=== PATIENT | male | born 1940 | race Caucasian/White ===

== ENCOUNTER 2018-03-15 08:44 | Day surgery (SDC) | payer MEDICARE ==
[~2018-03-15] VITALS: Ht 185.4 cm; Wt 101.0 kg
[~2018-03-15 08:44] MED LIST: AEC81 PO; ALLO300T2 PO; ASCO-360 PO; ASCO1CAP5 PO; BUPR-87 PO; DESV50TA PO; HUM10VIA6 SQ; LEVO500T2 PO; LOSA25TA21 PO; MULT-1203 PO; NIAC1CAP PO; OMEP40CA37 PO; SIMV20TA6 PO; SODIUM CHLORIDE 0.9% 1000ML 1,000 ML IV ONE; SOLI10TA PO; TRIA1TAB3 PO
[2018-03-15 10:54] VITALS: BP 101/56
[2018-03-15] MEDS ORDERED: DOXY100C2 PO (11:03)
[2018-03-15 11:15] VITALS: BP 117/63
== END 2018-03-15 12:00 | disposition home or self-care (01) ==
LOC: ENDO 08:44 → DAH 08:44 → ENDO 12:00
PROVIDERS: ATTEND Internal Medicine
DX: K86.89 Other specified diseases of pancreas (principal); K31.89 Other diseases of stomach and duodenum; I10 Essential (primary) hypertension; E78.5 Hyperlipidemia, unspecified; F41.9 Anxiety disorder, unspecified; E11.9 Type 2 diabetes mellitus without complications; F32.9 Major depressive disorder, single episode, unspecified; M19.90 Unspecified osteoarthritis, unspecified site; Z85.46 Personal history of malignant neoplasm of prostate; Z85.828 Personal history of other malignant neoplasm of skin; Z68.29 Body mass index [BMI] 29.0-29.9, adult; Z90.49 Acquired absence of other specified parts of digestive tract; Z98.49 Cataract extraction status, unspecified eye; Z98.890 Other specified postprocedural states; Z79.4 Long term (current) use of insulin; Z79.899 Other long term (current) drug therapy; Z79.84 Long term (current) use of oral hypoglycemic drugs; Z86.010 Personal history of colon polyps; D64.9 Anemia, unspecified; K21.0 Gastro-esophageal reflux disease with esophagitis; K29.70 Gastritis, unspecified, without bleeding; Z88.2 Allergy status to sulfonamides; Z88.8 Allergy status to other drugs, medicaments and biological substances
CPT/HCPCS: 43237; 82948 ×2; 93005; A4606; J7030; 43231

== ENCOUNTER 2019-03-04 08:31 | Day surgery (SDC) | payer MEDICARE ==
[~2019-03-04] VITALS: Ht 182.9 cm; Wt 108.9 kg
[~2019-03-04 08:31] MED LIST changes: -ASCO1CAP5 PO; +DOXY100C2 PO; +FERS325 PO; -LEVO500T2 PO; -LOSA25TA21 PO; +LOSA25TA41 PO; +MELO-108 PO; +MEMA10TA20 PO; -TRIA1TAB3 PO; +VITAMIN E PO
[2019-03-04 10:05] VITALS: BP 124/64
[2019-03-04] MEDS ORDERED: PROPOFOL 10 MG/ML 20ML VIAL IV ONE (11:55)
[2019-03-04 12:20] VITALS: BP_SYST 131; BP_SYST 133; BP_DIAS 53; BP_DIAS 60
[2019-03-04 12:23] VITALS: BP 131/53
[2019-03-04 12:28] VITALS: BP 128/57
[2019-03-04 12:30] VITALS: BP 130/70
== END 2019-03-04 13:09 | disposition home or self-care (01) ==
LOC: DAH 08:31 → ENDO 08:31
PROVIDERS: ATTEND Internal Medicine
DX: K29.70 Gastritis, unspecified, without bleeding (principal); K21.0 Gastro-esophageal reflux disease with esophagitis; K76.89 Other specified diseases of liver; N28.1 Cyst of kidney, acquired; N13.30 Unspecified hydronephrosis; I10 Essential (primary) hypertension; E78.5 Hyperlipidemia, unspecified; D64.9 Anemia, unspecified; M19.90 Unspecified osteoarthritis, unspecified site; F41.9 Anxiety disorder, unspecified; E11.9 Type 2 diabetes mellitus without complications; F32.9 Major depressive disorder, single episode, unspecified; Z79.4 Long term (current) use of insulin; Z79.899 Other long term (current) drug therapy; Z79.82 Long term (current) use of aspirin; Z90.49 Acquired absence of other specified parts of digestive tract; Z88.1 Allergy status to other antibiotic agents; Z88.8 Allergy status to other drugs, medicaments and biological substances; Z85.46 Personal history of malignant neoplasm of prostate; Z85.820 Personal history of malignant melanoma of skin; Z86.010 Personal history of colon polyps; Z87.891 Personal history of nicotine dependence; Z68.33 Body mass index [BMI] 33.0-33.9, adult
CPT/HCPCS: 43237; 43239; 82948 ×2; 93005; A4606; J2704; J7030; 43232